=== PATIENT | female | born 1995 | race Caucasian/White ===

== ENCOUNTER 2016-11-10 09:19 | Emergency (ER) | payer MEDICAID ==
[2016-11-10] MEDS ORDERED: SODIUM CHLORIDE 0.9% 1,000 ML ONE (11:29)
[2016-11-10] MEDS ORDERED: KETOROLAC 30 MG/ML VIAL ONE (11:29)
[2016-11-10] MEDS ORDERED: DIPHENHYDRAMINE 50 MG/ML VIAL ONE (11:29)
[2016-11-10] MEDS ORDERED: ONDANSETRON 4 MG VIAL ONE (11:29)
== END 2016-11-10 13:12 | disposition home or self-care (01) ==
LOC: ER 09:19
DX: G44.211 Episodic tension-type headache, intractable (principal); F41.1 Generalized anxiety disorder; F17.210 Nicotine dependence, cigarettes, uncomplicated
CPT/HCPCS: 96361; 96374; 96375